=== PATIENT | female | born 2005 | race Caucasian/White ===

== ENCOUNTER 2025-01-26 20:44 | Observation (INO) ==
--- NOTE | 2025-01-26 21:06 | Emergency Department Note ---
Impression & Plan Abdominal pain ED Provider Note CHIEF COMPLAINT: Lower abdominal and pelvic pain HISTORY OF PRESENTING ILLNESS: Patient is a 19-year-old female presents to the emergency department today for evaluation of lower abdominal and pelvic pain that started last night around midnight. She reports that it radiates to her mid lower lumbar region. She rates the pain as a 5 out of 10 and describes it as a stabbing burning and cramping. She has been seen at [facility] twice now within the last month for the same complaint she states that the pain was much worse at that time. Her last bowel movement was yesterday. She did stop using control about 3 months ago and states that she has had irregular periods since. Her last menstrual cycle was January 10 to . She denies the chance of . She denies chest pain, sob, breathing difficulties, nausea, vomiting, headache, fevers/chills, blood in stool or urine, any recent illness, or any recent travel. REVIEW OF SYSTEMS: See HPI for pertinent positives and pertinent negatives. ALLERGIES: Amoxicillin, clindamycin, penicillins, sulfa, Bactrim MEDICATIONS: Zyrtec, Singulair PAST MEDICAL HISTORY: Seasonal allergies PHYSICAL EXAM: VITALS: Vitals are noted on the nurse's note and reviewed by myself. GENERAL: Non toxic, in no acute distress, non-diaphoretic. SKIN: Capillary refill <2 sec. EYES: PERRLA. EOMI. Conjunctivae without injection, sclerae without icterus. NOSE: Patent without discharge. MOUTH: Mucous membranes moist. Uvula midline. Airway patent. NECK: Supple without nuchal rigidity. HEART: Regular rate and rhythm without murmurs gallops or rubs. LUNGS: Clear to auscultation bilaterally without wheezes, rales or rhonchi. No retractions or accessory muscle use. ABDOMEN: Positive bowel sounds x 4. Normal tympanic percussion. Soft, nontender to palpation. No masses or hepatosplenomegaly. Figueroa sign negative. No CVA tenderness. No guarding, rigidity, or rebound tenderness. Mid lower abdominal/pelvic pain. MUSCULOSKELETAL: No gross musculoskeletal defects. NEURO: Patient was alert and oriented. No focal neurological deficits. DIFFERENTIAL DIAGNOSIS: Differential diagnosis includes appendicitis, diverticulitis, bowel obstruction, inflammatory bowel disease, renal colic, PUD, biliary pathology, pancreatitis, mesenteric ischemia, aortic pathology, infection, genitourinary, UTI, perforated viscus, among others. ED COURSE: HISTORY FROM INDEPENDENT HISTORIAN: Patient and her friend at bedside MEDICATIONS GIVEN: Tylenol 1 g IV the patient had improvement with pain. INTERPRETATION OF LABS: I interpreted the labs with full lab results as below in the lab section of this note. Laboratory results pertinent to the emergent complaint are discussed in the MDM section below. The patient was advised to follow up with their PCP and/or specialist(s) for further outpatient monitoring and management of any abnormal results. There was no leukocytosis, anemia, thrombocytopenia. The urinalysis was negative for bacteria, leukocytes, nitrates. Urine was also negative. INTERPRETATION OF IMAGING: Imaging studies were interpreted by myself and read by radiology as per the imaging section of this note. The patient was advised to follow up with their PCP and/or specialist(s) for further outpatient management of any non-emergent abnormal findings. The CT scan showed an 8 mm tubular structure that appears to extend from the cecum and is blind ended. There is a small amount of surrounding inflammatory stranding, questioning acute appendicitis. Significant stool throughout the colon is concerning for constipation. Ultrasound was normal for the uterus, adnexa, and bladder. Minimal pelvic free fluid in the cul-de-sac. Pelvic venous congestion. EXTERNAL RECORDS REVIEWED: I reviewed the patient's express care visit notes. CONSULTATIONS: I had a meaningful discussion about this patient with Dr. Marvin who agrees with my assessment and the treatment plan. ESCALATION OF CARE: I considered admission for this patient due to the CT findings. I consulted with Gene Rogers PA-C with surgery for admission. Will get a pelvic ultrasound, as the patient does not present as appendicitis and with a normal WBC count. I also spoke with Dr. Miranda who will wait and see what the ultrasound shows and consider having surgery admit the patient. Pelvic ultrasound was normal for the uterus, adnexa, and bladder. Minimal pelvic free fluid in the cul-de-sac. Pelvic venous congestion. I spoke with SETH Mills who will admit the patient to observation. MDM SUMMARY: I examined the patient for complaints of mid lower abdominal/pelvic pain. The CT scan showed an 8 mm tubular structure that appears to extend from the cecum and is blind ended. There is a small amount of surrounding inflammatory stranding, questioning acute appendicitis. Significant stool throughout the colon is concerning for constipation. The patient was given Tylenol 1 g IV and had improvement with pain. Patient admitted to observation by DEDRA Mills. DIAGNOSIS: Abdominal pain, possible appendicitis TREATMENT PLAN/DISCHARGE INSTRUCTIONS: Admit to observation Past Med/Surg History Problem List (Updated 01/27/25 @ 04:05 by SAHIL Breen) Abdominal pain (Acute) Social History (Updated 01/01/25 @ 15:53 by Kia Conrad, PCT) Smoking Status: Never smoker Preferred Language: Nigerien Feels Safe at Home: Yes Allergies Allergies Allergy/AdvReac Type Severity Reaction Status Date / Time amoxicillin Allergy Intermediate Unverified 01/01/25 15:51 clindamycin Allergy Intermediate Unverified 01/01/25 15:51 Penicillins Allergy Intermediate Unverified 01/01/25 15:51 sulfamethoxazole Allergy Intermediate Unverified 01/01/25 15:51 [From Bactrim] trimethoprim [From Bactrim] Allergy Intermediate Unverified 01/01/25 15:51 Home Meds Home Medications Medication Instructions Recorded Confirmed cetirizine 10 mg tablet (Zyrtec) 10 mg PO DAILY PRN Allergy Symptoms 11/13/24 01/26/25 fluticasone propionate 50 1 spray intranasal DAILY 11/13/24 01/26/25 mcg/actuation nasal spray,suspension (Flonase Allergy Relief) montelukast 10 mg tablet 10 mg PO DAILY 11/13/24 01/26/25 (Singulair) Results & Data (ED) Vital Signs Vital Signs - 24 hr 01/26/25 20:47 01/26/25 21:03 01/26/25 21:03 Temperature 36.8 C Temperature Source Temporal Artery Scan Pulse Rate 112 H Pulse Rate [Apical] 91 H Pulse Rhythm [Apical] Pulse Strength [Apical] Respiratory Rate 17 18 Respiratory Effort / Characteristics Non-Labored Spontaneous Respiratory Depth Normal Respiratory Pattern Regular Blood Pressure 108/74 Blood Pressure [Left Arm] 107/80 Blood Pressure Mean 85 Blood Pressure Mean [Left Arm] 89 Blood Pressure Position [Left Arm] Pulse Oximetry 95 97 Oxygen Delivery Method Room Air Room Air Sepsis Recent Fever Within 48 Hours No Sepsis New/Unexplained Change in Mental Status No Sepsis Action Taken by Nursing No Action Required 01/26/25 21:10 01/26/25 23:04 01/27/25 01:00 Temperature Temperature Source Pulse Rate 92 H Pulse Rate [Apical] 61 72 Pulse Rhythm [Apical] Pulse Strength [Apical] Normal Normal Respiratory Rate 18 19 Respiratory Effort / Characteristics Non-Labored Spontaneous Non-Labored Spontaneous Respiratory Depth Normal Normal Respiratory Pattern Regular Blood Pressure Blood Pressure [Left Arm] 97/66 L 112/81 Blood Pressure Mean Blood Pressure Mean [Left Arm] 76 91 Blood Pressure Position [Left Arm] Pulse Oximetry 96 99 Oxygen Delivery Method Room Air Room Air Sepsis Recent Fever Within 48 Hours Sepsis New/Unexplained Change in Mental Status Sepsis Action Taken by Nursing 01/27/25 01:06 01/27/25 02:01 01/27/25 03:00 Temperature 36.6 C Temperature Source Oral Pulse Rate 65 Pulse Rate [Apical] 61 66 Pulse Rhythm [Apical] Regular Pulse Strength [Apical] Normal Normal Respiratory Rate 18 18 Respiratory Effort / Characteristics Non-Labored Spontaneous Non-Labored Spontaneous Respiratory Depth Normal Normal Respiratory Pattern Regular Regular Blood Pressure Blood Pressure [Left Arm] 105/70 95/67 L Blood Pressure Mean Blood Pressure Mean [Left Arm] 81 76 Blood Pressure Position [Left Arm] Lying Pulse Oximetry 98 97 Oxygen Delivery Method Room Air Room Air Sepsis Recent Fever Within 48 Hours Sepsis New/Unexplained Change in Mental Status Sepsis Action Taken by Nursing 01/27/25 03:01 01/27/25 03:50 Temperature 36.7 C Temperature Source Oral Pulse Rate 63 Pulse Rate [Apical] 67 Pulse Rhythm [Apical] Pulse Strength [Apical] Normal Respiratory Rate 18 15 Respiratory Effort / Characteristics Respiratory Depth Respiratory Pattern Blood Pressure 91/66 L Blood Pressure [Left Arm] 95/67 L Blood Pressure Mean Blood Pressure Mean [Left Arm] 76 Blood Pressure Position [Left Arm] Pulse Oximetry 98 96 Oxygen Delivery Method Room Air Sepsis Recent Fever Within 48 Hours Sepsis New/Unexplained Change in Mental Status Sepsis Action Taken by Nursing Laboratory Data 01/26/25 21:10 01/26/25 21:10 Lab Results 01/26/25 Range/Units 21:10 WBC 6.17 (4.8-10.8) K/ul RBC 4.40 (4.20-5.40) M/uL Hgb 13.3 (12.0-16.0) g/dl Hct 38.6 (37.0-47.0) % MCV 87.7 (80.0-100.0) fL MCH 30.2 (25.0-34.0) pg MCHC 34.5 (32.0-36.0) g/dL RDW Std Deviation 37.0 (36.4-46.3) fL RDW Coeff of Michelle 11.5 (11.5-14.5) % Plt Count 206 (130-400) K/uL MPV 10.2 (9.4-12.4) fL Immature Gran % (Auto) 0.2 % Neut % (Auto) 41.3 % Lymph % (Auto) 46.4 % Gem % (Auto) 6.0 % Eos % (Auto) 5.3 % Baso % (Auto) 0.8 % Neut # (Auto) 2.55 (1.40-6.50) K/uL Lymph # (Auto) 2.86 (1.20-3.40) K/uL Gem # (Auto) 0.37 (0.11-0.59) K/uL Eos # (Auto) 0.33 (0.00-0.50) K/uL Baso # (Auto) 0.05 (0.00-0.20) K/uL Immature Gran # (Auto) 0.01 (0.01-0.20) K/uL Sodium 141 (136-145) mmol/L Potassium 3.6 (3.5-5.1) mmol/L Chloride 106 (98-107) mmol/L Carbon Dioxide 31 (21-32) mmol/L Anion Gap 4 (3-11) BUN 9 (6-23) mg/dl Creatinine 0.78 (0.6-1.2) mg/dl Est Cr Clr Drug Dosing 89.0 ml/min eGFR 110.75 BUN/Creatinine Ratio 11.5 (10-20) Glucose 84 (70-99(Fasting)) mg/dl Calcium 9.3 (8.6-10.3) mg/dl Total Bilirubin 0.4 (0.2-1.0) mg/dl AST 16 (13-39) U/L ALT 8 (7-52) U/L Alkaline Phosphatase 59 (34-104) U/L Troponin I High Sens < 2.3 (0-14) pg/ml Total Protein 7.9 (6.0-8.3) gm/dl Albumin 4.7 (3.4-5.0) gm/dl Globulin 3.2 (2.5-4.0) gm/dl Albumin/Globulin Ratio 1.5 (0.9-2) Lipase 29 (11-82) U/L Urine Color Yellow Urine Appearance Clear (Clear) Urine pH 7.5 (4.5-7.5) Ur Specific [place] 1.010 (1.000-1.030) Urine Protein Negative (Negative) Urine Glucose (UA) Negative (Negative) Urine Ketones Negative (Negative) Urine Blood Negative (Negative) Urine Nitrite Negative (Negative) Urine Bilirubin Negative (Negative) Urine Urobilinogen Negative (Negative) Ur Leukocyte Esterase Negative (Negative) POC Ur Test NEG (NEG) Administered Medications Lactated Ringer's (Lr) 1,000 mls @ 80 mls/hr IV .[id number] ROME Stop: 01/28/25 02:59 Last Admin: 01/27/25 03:06 Dose: 80 mls/hr Documented By: TJS Discontinued Medications Acetaminophen (Ofirmev) 1,000 mg in 100 mls @ 400 mls/hr IV NOW STA Stop: 01/26/25 21:25 Last Infusion: 01/26/25 22:06 Dose: Infused Documented By: Admin: 01/26/25 21:51 Dose: 400 mls/hr Documented By: LCD Imaging Data Radiologist's Impression: Abdomen/Pelvis CT 01/26/25 21:03 CR Exam(s): CT ABDOMEN + PELVIS Without Contrast EXAM: CT Abdomen and Pelvis Without Intravenous Contrast CLINICAL HISTORY: Abdominal Pain. TECHNIQUE: Axial computed tomography images of the abdomen and pelvis without intravenous contrast. CTDI is 7 mGy and DLP is 364 mGy-cm. Automated exposure control was utilized for the study. A dose lowering technique was utilized adhering to the principles of ALARA. COMPARISON: Renal ultrasound 06/25/2024 FINDINGS: Lung bases: Unremarkable. No mass. No consolidation. ABDOMEN: Liver: Unremarkable. Gallbladder and bile ducts: Unremarkable. No calcified stones. No ductal dilation. Pancreas: Unremarkable. No ductal dilation. Spleen: Unremarkable. No splenomegaly. Adrenals: Unremarkable. No mass. Kidneys and ureters: Unremarkable. Nonobstructing stones. No hydronephrosis. Stomach and bowel: No obstruction. No mucosal thickening. PELVIS: Appendix: There is an 8 mm tubular structure that appears to extend from the cecum and is blind ended. There is a small amount of surrounding inflammatory stranding. Significant stool throughout the colon is concerning for constipation. Axial images 59 through 70. Bladder: Unremarkable. No stones. Reproductive: Unremarkable as visualized. ABDOMEN and PELVIS: Intraperitoneal space: Unremarkable. No free air. No significant fluid collection. Bones/joints: No acute fracture. No dislocation. Soft tissues: Unremarkable. Vasculature: Unremarkable. No abdominal aortic aneurysm. Lymph nodes: Unremarkable. No enlarged lymph nodes. IMPRESSION: 1. There is an 8 mm tubular structure that appears to extend from the cecum and is blind ended. There is a small amount of surrounding inflammatory stranding. Question acute appendicitis. No abscess or perforation. 2. Significant stool throughout the colon is concerning for constipation. Communications: Call Doctor Appendicitis Electronically signed by: Aleena Stallings MD 01/27/25 00:02 AM Pelvis Ultrasound 01/27/25 01:04 EXAM: US pelvic complete CLINICAL HISTORY: Abdominal pain. TECHNIQUE: Ultrasound examination of the pelvis was performed in real time and duplex using trans-abdominal and trans-vaginal approaches. The vascular flow was evaluated using color flow and with a spectral pattern of the flow waveform. COMPARISON: None. FINDINGS: Uterus: Uterine size and morphology: 6.3 x 4.4 x 3.3cm. The uterus appears retroverted with homogeneous myometrium. No evidence of uterine masses, fibroids, or endometrial thickening. Endometrial stripe thickness: [6 mm]. Ovaries: Right ovary size: 2.6 x 2.3 x 1.5cm. Left ovary size: 3.4 x 2 x 1.4cm. Ovaries are normal in size with preserved follicular development and blood flow. No ovarian cysts or solid masses were identified. Adnexa: Normal appearance without evidence of masses. Urinary bladder: No evidence of bladder wall thickening, masses, or intraluminal stones. Additional Findings: Minimal pelvic free fluid in the cul-de-sac. Pelvic venous congestion noted. IMPRESSION: 1. Normal findings in the uterus, ovaries, adnexa, and bladder. 2. Minimal pelvic free fluid in the cul-de-sac, possibly physiological; clinical correlation would be recommended. 3. Pelvic venous congestion. RECOMMENDATIONS:Clinical correlation with symptoms and further evaluation as indicated. Electronically signed by Zach Boothe 01-27-2025 02:50 AM Discharge Plan Visit Data Chief Complaint: Abdominal Pain Stated Complaint: ABDOMINAL PAIN, CRAMPING ED Provider: Anais Marvin ED Midlevel Provider: Tracey Lira Discharge Problem: Abdominal pain Patient Disposition: Home - Self-Care Condition: Good Discharge Instructions Interventions: ED Discharge Assessment Last Done: 01/27/25 03:50 Forms Stand Alone Forms: My [facility], Important Visit Information Prescriptions Prescriptions: No Action montelukast [Singulair] 10 mg tablet 10 mg PO DAILY cetirizine [Zyrtec] 10 mg tablet 10 mg PO DAILY PRN (Reason: Allergy Symptoms) fluticasone propionate [Flonase Allergy Relief] 50 mcg/actuation spray,suspension 1 spray intranasal DAILY Rx Instructions: administer into each nostril Referrals Referrals: PCP,NO [Primary Care Provider] -
[2025-01-26 21:32] LABS: Appearance Urine Clear (Clear); Bilirubin Urine Negative (Negative); Blood Urine Negative (Negative); Color Urine Yellow; Glucose Urine UA Negative (Negative); Ketones Urine Negative (Negative); Leukocyte Esterase Urine Negative (Negative); Nitrite Urine Negative (Negative); Protein Urine Negative (Negative); Urobilinogen Urine Negative (Negative); pH Urine 7.5 (4.5-7.5)
[2025-01-26 21:47] LABS: Basophils # (auto) 0.05 K/uL (0.00-0.20); Basophils % (auto) 0.8 %; Eosinophils # (auto) 0.33 K/uL (0.00-0.50); Eosinophils % (auto) 5.3 %; Hematocrit (blood only) 38.6 % (37.0-47.0); Hemoglobin 13.3 g/dl (12.0-16.0); Immature Granulocytes # (auto) 0.01 K/uL (0.01-0.20); Immature Granulocytes % (auto) 0.2 %; Lymphocytes # (auto) 2.86 K/uL (1.20-3.40); Lymphocytes % (auto) 46.4 %; Mean Corpuscular Hemoglobin 30.2 pg (25.0-34.0); Mean Corpuscular Hgb Conc 34.5 g/dL (32.0-36.0); Mean Corpuscular Volume 87.7 fL (80.0-100.0); Mean Platelet Volume 10.2 fL (9.4-12.4); Monocytes # (auto) 0.37 K/uL (0.11-0.59); Neutrophils # (auto) 2.55 K/uL (1.40-6.50); Neutrophils % (auto) 41.3 %; Platelet Count 206 K/uL (130-400); RDW Coefficient of Variation 11.5 % (11.5-14.5); White Blood Count 6.17 K/ul (4.8-10.8)
[2025-01-26] MEDS: ACETAMINOPHEN 1,000 MG/100 ML VIAL IV STA (21:51)
[2025-01-26 22:02] LABS: Alanine Aminotransferase 8 U/L (7-52); Albumin Globulin Ratio 1.5 (0.9-2); Albumin Level 4.7 gm/dl (3.4-5.0); Alkaline Phosphatase 59 U/L (34-104); Anion Gap 4 (3-11); Aspartate Aminotransferase 16 U/L (13-39); BUN Creatinine Ratio 11.5 (10-20); Bilirubin,Total 0.4 mg/dl (0.2-1.0); Blood Urea Nitrogen 9 mg/dl (6-23); Calcium 9.3 mg/dl (8.6-10.3); Carbon Dioxide 31 mmol/L (21-32); Chloride 106 mmol/L (98-107); Globulin 3.2 gm/dl (2.5-4.0); Glucose 84 mg/dl (70-99(Fasting)); Lipase 29 U/L (11-82); Potassium 3.6 mmol/L (3.5-5.1); Sodium 141 mmol/L (136-145); Total Protein 7.9 gm/dl (6.0-8.3)
[2025-01-26 22:09] LABS: Troponin I High Sensitivity < 2.3 pg/ml (0-14)
--- NOTE | 2025-01-27 00:03 | CT Scan Report ---
Exam(s): CT ABDOMEN + PELVIS Without Contrast EXAM: CT Abdomen and Pelvis Without Intravenous Contrast CLINICAL HISTORY: Abdominal Pain. TECHNIQUE: Axial computed tomography images of the abdomen and pelvis without intravenous contrast. CTDI is 7 mGy and DLP is 364 mGy-cm. Automated exposure control was utilized for the study. A dose lowering technique was utilized adhering to the principles of ALARA. COMPARISON: Renal ultrasound 06/25/2024 FINDINGS: Lung bases: Unremarkable. No mass. No consolidation. ABDOMEN: Liver: Unremarkable. Gallbladder and bile ducts: Unremarkable. No calcified stones. No ductal dilation. Pancreas: Unremarkable. No ductal dilation. Spleen: Unremarkable. No splenomegaly. Adrenals: Unremarkable. No mass. Kidneys and ureters: Unremarkable. Nonobstructing stones. No hydronephrosis. Stomach and bowel: No obstruction. No mucosal thickening. PELVIS: Appendix: There is an 8 mm tubular structure that appears to extend from the cecum and is blind ended. There is a small amount of surrounding inflammatory stranding. Significant stool throughout the colon is concerning for constipation. Axial images 59 through 70. Bladder: Unremarkable. No stones. Reproductive: Unremarkable as visualized. ABDOMEN and PELVIS: Intraperitoneal space: Unremarkable. No free air. No significant fluid collection. Bones/joints: No acute fracture. No dislocation. Soft tissues: Unremarkable. Vasculature: Unremarkable. No abdominal aortic aneurysm. Lymph nodes: Unremarkable. No enlarged lymph nodes. IMPRESSION: 1. There is an 8 mm tubular structure that appears to extend from the cecum and is blind ended. There is a small amount of surrounding inflammatory stranding. Question acute appendicitis. No abscess or perforation. 2. Significant stool throughout the colon is concerning for constipation. Communications: Call Doctor Appendicitis Electronically signed by: Aleena Stallings MD 01/27/25 00:02 AM
--- NOTE | 2025-01-27 01:25 | Surgery Consultation ---
Date of Consultation January 27, 2025 Assessment & Plan (1) Abdominal pain: Patient is a 19-year-old female with complaints of lower abdominal pain that started last evening and intermittently throughout the month. The patient was worked up in the emergency room and labs were all WNL however CT imaging did show 8mm appendix with small amount of surrounding inflammatory stranding. On exam the patient does have some slight TTP in the RLQ however it is unclear if her symptoms are from acute appendicitis at this time. The patient History of Present Illness Reason for Consultation: abdominal pain History of Present Illness Patient is an otherwise healthy 19-year-old female who presented to the emergency department for complaints of lower abdominal pain. The patient states the pain started a day prior and the pain has started to radiate into her lower back at times. The patient denies any associated nausea or vomiting with the onset of her pain. She does state that she recently has stopped control and she has had irregular periods since. Her last menstrual cycle ended last week. She has seen a [facility] in the past, however since being in college she hasn't seen one recently. She does believe once prior she had an ovarian cyst however was never confirmed with imaging. The patient states that she has had intermittent abdominal pain for the past month and she was seen at [facility] for the same complaints. She denies chest pain, sob, or fevers/chills. She denies any changes in urinary or bowel habits. Her last BM was a few days ago however states that's normal for her and she goes 3 or so days between having bowel movements. She also complains of constipation at times. The patient was worked up in the emergency department and labs WNL and imaging with 8mm appendix with some slight inflammatory stranding. Due to these findings , the patient was seen and evaluated by general surgery team. The patient is nontoxic appearing, VSS, and resting comfortably. The patient on exam does have some TTP in the RLQ however no rebound or guarding appreciated. The patient denies any previous abdominal surgeries. Allergies Allergy/AdvReac Type Severity Reaction Status Date / Time amoxicillin Allergy Intermediate Unverified 01/01/25 15:51 clindamycin Allergy Intermediate Unverified 01/01/25 15:51 Penicillins Allergy Intermediate Unverified 01/01/25 15:51 sulfamethoxazole Allergy Intermediate Unverified 01/01/25 15:51 [From Bactrim] trimethoprim [From Bactrim] Allergy Intermediate Unverified 01/01/25 15:51 Home Medications Medication Instructions Recorded Confirmed Type cetirizine 10 mg tablet (Zyrtec) 10 mg PO DAILY PRN Allergy Symptoms 11/13/24 01/26/25 History fluticasone propionate 50 1 spray intranasal DAILY 11/13/24 01/26/25 History mcg/actuation nasal spray,suspension (Flonase Allergy Relief) montelukast 10 mg tablet 10 mg PO DAILY 11/13/24 01/26/25 History (Singulair) Patient History Social History (Updated 01/01/25 @ 15:53 by Kia Conrad, PCT) Smoking Status: Never smoker Preferred Language: Solomon Islander Feels Safe at Home: Yes Review of Systems Constitutional: no fever, no chills, no body aches and no weakness Respiratory: no cough, no chest congestion and no dyspnea Cardiovascular: no chest pain, no palpitations and no syncope Gastrointestinal: + abdominal pain and + constipation; no nausea and no vomiting Physical Exam Constitutional: WD/WN, vitals as above Respiratory: normal respiratory effort, lungs clear to auscultation Cardiovascular: RRR, no murmur, no edema Gastrointestinal (Abdomen): Abdomen soft, nondistended, mild TTP in the RLQ without rebound or guarding Skin: no rashes, warm and dry Results & Data Vital Signs (Past 12 Hours) Vital Signs Temp Pulse Pulse Resp BP BP Pulse Ox 01/27/25 01:06 65 01/27/25 01:00 72 19 112/81 99 01/26/25 23:04 61 18 97/66 L 96 01/26/25 21:10 92 H 01/26/25 21:03 01/26/25 21:03 91 H 18 107/80 97 01/26/25 20:47 36.8 C 112 H 17 108/74 95 O2 Del Method 01/27/25 01:06 01/27/25 01:00 Room Air 01/26/25 23:04 Room Air 01/26/25 21:10 01/26/25 21:03 Room Air 01/26/25 21:03 01/26/25 20:47 Room Air Diagnostic Findings Exam(s): CT ABDOMEN + PELVIS Without Contrast EXAM: CT Abdomen and Pelvis Without Intravenous Contrast CLINICAL HISTORY: Abdominal Pain. TECHNIQUE: Axial computed tomography images of the abdomen and pelvis without intravenous contrast. CTDI is 7 mGy and DLP is 364 mGy-cm. Automated exposure control was utilized for the study. A dose lowering technique was utilized adhering to the principles of ALARA. COMPARISON: Renal ultrasound 06/25/2024 FINDINGS: Lung bases: Unremarkable. No mass. No consolidation. ABDOMEN: Liver: Unremarkable. Gallbladder and bile ducts: Unremarkable. No calcified stones. No ductal dilation. Pancreas: Unremarkable. No ductal dilation. Spleen: Unremarkable. No splenomegaly. Adrenals: Unremarkable. No mass. Kidneys and ureters: Unremarkable. Nonobstructing stones. No hydronephrosis. Stomach and bowel: No obstruction. No mucosal thickening. PELVIS: Appendix: There is an 8 mm tubular structure that appears to extend from the cecum and is blind ended. There is a small amount of surrounding inflammatory stranding. Significant stool throughout the colon is concerning for constipation. Axial images 59 through 70. Bladder: Unremarkable. No stones. Reproductive: Unremarkable as visualized. ABDOMEN and PELVIS: Intraperitoneal space: Unremarkable. No free air. No significant fluid collection. Bones/joints: No acute fracture. No dislocation. Soft tissues: Unremarkable. Vasculature: Unremarkable. No abdominal aortic aneurysm. Lymph nodes: Unremarkable. No enlarged lymph nodes. IMPRESSION: 1. There is an 8 mm tubular structure that appears to extend from the cecum and is blind ended. There is a small amount of surrounding inflammatory stranding. Question acute appendicitis. No abscess or perforation. 2. Significant stool throughout the colon is concerning for constipation. PG Care Time/CCT Total # of Minutes Spent Total Time Spent with Patient: Total time spent is greater than 50% in coordination of care (as documented) at patient's floor/unit and/or counseling patient: Coding Diagnoses Abdominal pain R10.9
--- NOTE | 2025-01-27 02:51 | Ultrasound Report ---
EXAM: US pelvic complete CLINICAL HISTORY: Abdominal pain. TECHNIQUE: Ultrasound examination of the pelvis was performed in real time and duplex using trans-abdominal and trans-vaginal approaches. The vascular flow was evaluated using color flow and with a spectral pattern of the flow waveform. COMPARISON: None. FINDINGS: Uterus: Uterine size and morphology: 6.3 x 4.4 x 3.3cm. The uterus appears retroverted with homogeneous myometrium. No evidence of uterine masses, fibroids, or endometrial thickening. Endometrial stripe thickness: [6 mm]. Ovaries: Right ovary size: 2.6 x 2.3 x 1.5cm. Left ovary size: 3.4 x 2 x 1.4cm. Ovaries are normal in size with preserved follicular development and blood flow. No ovarian cysts or solid masses were identified. Adnexa: Normal appearance without evidence of masses. Urinary bladder: No evidence of bladder wall thickening, masses, or intraluminal stones. Additional Findings: Minimal pelvic free fluid in the cul-de-sac. Pelvic venous congestion noted. IMPRESSION: 1. Normal findings in the uterus, ovaries, adnexa, and bladder. 2. Minimal pelvic free fluid in the cul-de-sac, possibly physiological; clinical correlation would be recommended. 3. Pelvic venous congestion. RECOMMENDATIONS:Clinical correlation with symptoms and further evaluation as indicated. Electronically signed by Zach Boothe 01-27-2025 02:50 AM
[2025-01-27] MEDS: LACTATED RINGER'S 1,000 ML IV SCH (03:06)
--- NOTE | 2025-01-27 03:07 | History & Physical Report ---
Date of Service January 27, 2025 Assessment & Plan (1) Abdominal pain: Plan: Patient with acute onset of lower abdominal pain that started about a day ago and intermittently has had similar abdominal complaints over the last few weeks. The patient was worked up in the emergency department and all labs were WNL and VSS. Her CT A/P does show an 8mm appendix with some surrounding inflammatory stranding with concern of acute appendicitis along with constipation. The pat ient on exam does elicit some mild TTP in the RLQ otherwise she denies any other associated symptoms. At this time it is unclear if etiology of abdominal pain is from appendicitis. I discussed with the patient about potential discharge with strict return precautions however she states she would feel more comfortable being admitted for observation for her abdominal pain. Patient can be admitted under observation to the surgical service, we will keep her NPO for now, IV hydration and pain control. No indication for antibiotics at this time and will repeat lab work this morning to evaluate WBC. We did discuss the possibility about undergoing surgical intervention if her symptoms continue and she ultimately does agree to surgery if indicated. I also did discuss with her about starting a bowel regime with stool softeners/fiber. Will discuss patient's case with attending surgeon, Dr. Clifton, and final surgical recommendations and plan to follow History of Present Illness Primary Care Provider: NO PCP Patient is an otherwise healthy 19-year-old female who presented to the emergency department for complaints of lower abdominal pain. The patient states the pain started a day prior and the pain has started to radiate into her lower back at times. The patient denies any associated nausea or vomiting with the onset of her pain. She does state that she recently has stopped control and she has had irregular periods since. Her last menstrual cycle ended last week. She has seen a [employer]OR [employer] in the past, however since being in college she hasn't seen one recently. She does believe once prior she had an ovarian cyst however was never confirmed with imaging. The patient states that she has had intermittent abdominal pain for the past month and she was seen at [facility] for the same complaints. She denies chest pain, sob, or fevers/chills. She denies any changes in urinary or bowel habits. Her last BM was a few days ago however states that's normal for her and she goes 3 or so days between having bowel movements. She also complains of constipation at times. The patient was worked up in the emergency department and labs WNL and imaging with 8mm appendix with some slight inflammatory stranding. Due to these findings , the patient was seen and evaluated by general surgery team. The patient is nontoxic appearing, VSS, and resting comfortably. The patient on exam does have some TTP in the RLQ however no rebound or guarding appreciated. The patient denies any previous abdominal surgeries. Allergies Allergy/AdvReac Type Severity Reaction Status Date / Time amoxicillin Allergy Intermediate Unverified 01/01/25 15:51 clindamycin Allergy Intermediate Unverified 01/01/25 15:51 Penicillins Allergy Intermediate Unverified 01/01/25 15:51 sulfamethoxazole Allergy Intermediate Unverified 01/01/25 15:51 [From Bactrim] trimethoprim [From Bactrim] Allergy Intermediate Unverified 01/01/25 15:51 Home Medications Medication Instructions Recorded Confirmed Type cetirizine 10 mg tablet (Zyrtec) 10 mg PO DAILY PRN Allergy Symptoms 11/13/24 01/26/25 History fluticasone propionate 50 1 spray intranasal DAILY 11/13/24 01/26/25 History mcg/actuation nasal spray,suspension (Flonase Allergy Relief) montelukast 10 mg tablet 10 mg PO DAILY 11/13/24 01/26/25 History (Singulair) Past Med/Surg History Problem List (Updated 01/27/25 @ 07:41 by Isauro Muñoz, ) Encounter for pre-operative examination Abdominal pain (Acute) Social History (Updated 01/01/25 @ 15:53 by Kia Conrad, [place]) Smoking Status: Never smoker Hx Alcohol Use: Yes Hx Substance Use: No Preferred Language: Citizen Of [place] Communication Ability: Effective 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 Beliefs That Will Affect Care: None Current Living Situation Comment: apartment Other Information That Helps Us Care for You: No Feels Safe at Home: Yes Safety Concerns: Feels Safe At This Time Assistive Devices: None Review of Systems Constitutional: no fever, no chills and no body aches Respiratory: no cough, no chest congestion and no dyspnea Cardiovascular: no chest pain, no palpitations and no syncope Gastrointestinal: + abdominal pain; no nausea and no vomit ing Physical Exam Constitutional: WD/WN, vitals as above Respiratory: normal respiratory effort, lungs clear to auscultation Cardiovascular: RRR, no murmur, no edema Gastrointestinal (Abdomen): Abdomen soft, nondistended, mild TTP in the RLQ without rebound or guarding Skin: no rashes, warm and dry Results & Data Results & Data Vital Signs (Past 12 Hours) Vital Signs Temp Pulse Pulse Resp BP BP Pulse Ox 01/27/25 02:01 36.6 C 61 18 105/70 98 01/27/25 01:06 65 01/27/25 01:00 72 19 112/81 99 01/26/25 23:04 61 18 97/66 L 96 01/26/25 21:10 92 H 01/26/25 21:03 01/26/25 21:03 91 H 18 107/80 97 01/26/25 20:47 36.8 C 112 H 17 108/74 95 O2 Del Method 01/27/25 02:01 Room Air 01/27/25 01:06 01/27/25 01:00 Room Air 01/26/25 23:04 Room Air 01/26/25 21:10 01/26/25 21:03 Room Air 01/26/25 21:03 01/26/25 20:47 Room Air Diagnostic Findings Exam(s): CT ABDOMEN + PELVIS Without Contrast EXAM: CT Abdomen and Pelvis Without Intravenous Contrast CLINICAL HISTORY: Abdominal Pain. TECHNIQUE: Axial computed tomography images of the abdomen and pelvis without intravenous contrast. CTDI is 7 mGy and DLP is 364 mGy-cm. Automated exposure control was utilized for the study. A dose lowering technique was utilized adhering to the principles of ALARA. COMPARISON: Renal ultrasound 06/25/2024 FINDINGS: Lung bases: Unremarkable. No mass. No consolidation. ABDOMEN: Liver: Unremarkable. Gallbladder and bile ducts: Unremarkable. No calcified stones. No ductal dilation. Pancreas: Unremarkable. No ductal dilation. Spleen: Unremarkable. No splenomegaly. Adrenals: Unremarkable. No mass. Kidneys and ureters: Unremarkable. Nonobstructing stones. No hydronephrosis. Stomach and bowel: No obstruction. No mucosal thickening. PELVIS: Appendix: There is an 8 mm tubular structure that appears to extend from the cecum and is blind ended. There is a small amount of surrounding inflammatory stranding. Significant stool throughout the colon is concerning for constipation. Axial images 59 through 70. Bladder: Unremarkable. No stones. Reproductive: Unremarkable as visualized. ABDOMEN and PELVIS: Intraperitoneal space: Unremarkable. No free air. No significant fluid collection. Bones/joints: No acute fracture. No dislocation. Soft tissues: Unremarkable. Vasculature: Unremarkable. No abdominal aortic aneurysm. Lymph nodes: Unremarkable. No enlarged lymph nodes. IMPRESSION: 1. There is an 8 mm tubular structure that appears to extend from the cecum and is blind ended. There is a small amount of surrounding inflammatory stranding. Question acute appendicitis. No abscess or perforation. 2. Significant stool throughout the colon is concerning for constipation. EXAM: US pelvic complete CLINICAL HISTORY: Abdominal pain. TECHNIQUE: Ultrasound examination of the pelvis was performed in real time and duplex using trans-abdominal and trans-vaginal approaches. The vascular flow was evaluated using color flow and with a spectral pattern of the flow waveform. COMPARISON: None. FINDINGS: Uterus: Uterine size and morphology: 6.3 x 4.4 x 3.3cm. The uterus appears retroverted with homogeneous myometrium. No evidence of uterine masses, fibroids, or endometrial thickening. Endometrial stripe thickness: [6 mm]. Ovaries: Right ovary size: 2.6 x 2.3 x 1.5cm. Left ovary size: 3.4 x 2 x 1.4cm. Ovaries are normal in size with preserved follicular development and blood flow. No ovarian cysts or solid masses were identified. Adnexa: Normal appearance without evidence of masses. Urinary bladder: No evidence of bladder wall thickening, masses, or intraluminal stones. Additional Findings: Minimal pelvic free fluid in the cul-de-sac. Pelvic venous congestion noted. IMPRESSION: 1. Normal findings in the uterus, ovaries, adnexa, and bladder. 2. Minimal pelvic free fluid in the cul-de-sac, possibly physiological; clinical correlation would be recommended. 3. Pelvic venous congestion. Code Status & VTE Plan VTE Prophylaxis Plan VTE Prophylaxis will be ordered: Yes PG Care Time/CCT Total # of Minutes Spent Total Time Spent with Patient: Total time spent is greater than 50% in coordination of care (as documented) at patient's floor/unit and/or counseling patient: [place] [address] INT INP/OBS CARE 1/40MIN Patient Type New Medical Decision Making Straight Forward Diagnoses Abdominal pain R10.9
[2025-01-27] MEDS ORDERED: ONDANSETRON INJ 2 MG/ML 2 ML VIAL IV PRN ×2 (04:16→12:40)
[2025-01-27] MEDS: ACETAMINOPHEN 1,000 MG/100 ML VIAL IV SCH (05:52)
--- NOTE | 2025-01-27 07:41 | Anesthesiology Consultation ---
Date of Service January 27, 2025 Assessment & Plan (1) Encounter for pre-operative examination: Chart Review Chart Review: Acceptable Risk for Surgery and Patient NOT seen in Pre Admission Testing Consults Requested none History Surgery Operation Date: 01/27/25 11:00 Proposed Procedures p Laparoscopic Appendectomy - Mayank Clifton DO Height/Weight Height: 5 ft 2 in Weight: 49.4 kg Allergies Allergy/AdvReac Type Severity Reaction Status Date / Time amoxicillin Allergy Intermediate Unverified 01/01/25 15:51 clindamycin Allergy Intermediate Unverified 01/01/25 15:51 Penicillins Allergy Intermediate Unverified 01/01/25 15:51 sulfamethoxazole Allergy Intermediate Unverified 01/01/25 15:51 [From Bactrim] trimethoprim [From Bactrim] Allergy Intermediate Unverified 01/01/25 15:51 Medications Home Medications Medication Instructions Recorded Confirmed Last Taken cetirizine 10 mg tablet (Zyrtec) 10 mg PO DAILY PRN Allergy Symptoms 11/13/24 01/26/25 Unknown fluticasone propionate 50 1 spray intranasal DAILY 11/13/24 01/26/25 Unknown mcg/actuation nasal spray,suspension (Flonase Allergy Relief) montelukast 10 mg tablet 10 mg PO DAILY 11/13/24 01/26/25 Unknown (Singulair) Active Medications Generic Name Dose Route Start Last Admin Trade Name Freq PRN Reason Stop Dose Admin Lactated Ringer's 1,000 mls @ 80 mls/hr 01/27/25 03:00 01/27/25 03:06 Lr IV 01/28/25 02:59 80 mls/hr .[id number] ROME Administration Acetaminophen 1,000 mg in 100 mls @ 400 mls/hr 01/27/25 06:00 01/27/25 06:08 Ofirmev IV 01/30/25 05:59 Infused Q8H ROME Infusion Social History Smoking Status: Never smoker Hx Alcohol Use: Yes Hx Substance Use: No Physical Exam Vital Signs Last Vital Signs Temp 98.2 F 01/27/25 07:37 Pulse 62 01/27/25 07:37 Resp 16 01/27/25 07:37 BP 95/61 L 01/27/25 07:37 Pulse Ox 98 01/27/25 07:37 O2 Del Method Room Air 01/27/25 07:37 Testing Laboratory Results 01/26/25 21:10 Urine Color Yellow 01/26/25 21:10 Urine Appearance Clear (Clear) 01/26/25 21:10 Urine pH 7.5 (4.5-7.5) 01/26/25 21:10 Ur Specific [place] 1.010 (1.000-1.030) 01/26/25 21:10 Urine Protein Negative (Negative) 01/26/25 21:10 Urine Glucose (UA) Negative (Negative) 01/26/25 21:10 Urine Ketones Negative (Negative) 01/26/25 21:10 Urine Nitrite Negative (Negative) 01/26/25 21:10 Ur Leukocyte Esterase Negative (Negative) 01/26/25 21:10 01/26/25 21:10 POC Ur Test NEG
[2025-01-27 07:44] LABS: Basophils # (auto) 0.03 K/uL (0.00-0.20); Basophils % (auto) 0.6 %; Eosinophils # (auto) 0.28 K/uL (0.00-0.50); Eosinophils % (auto) 5.2 %; Hematocrit (blood only) 34.8 % (37.0-47.0); Immature Granulocytes # (auto) 0.02 K/uL (0.01-0.20); Immature Granulocytes % (auto) 0.4 %; Lymphocytes # (auto) 2.18 K/uL (1.20-3.40); Lymphocytes % (auto) 40.5 %; Mean Corpuscular Hemoglobin 30.4 pg (25.0-34.0); Mean Corpuscular Hgb Conc 34.5 g/dL (32.0-36.0); Mean Corpuscular Volume 88.1 fL (80.0-100.0); Mean Platelet Volume 10.4 fL (9.4-12.4); Monocytes # (auto) 0.31 K/uL (0.11-0.59); Monocytes % (auto) 5.8 %; Neutrophils # (auto) 2.56 K/uL (1.40-6.50); Neutrophils % (auto) 47.5 %; Platelet Count 180 K/uL (130-400); RDW Coefficient of Variation 11.5 % (11.5-14.5); RDW Standard Deviation 37.1 fL (36.4-46.3); Red Blood Count 3.95 M/uL (4.20-5.40); White Blood Count 5.38 K/ul (4.8-10.8)
--- NOTE | 2025-01-27 12:14 | Surgery Progress Note ---
Date of Service January 27, 2025 Assessment & Plan (1) Appendicitis: Plan: Her CT images and results were personally viewed and interpreted by myself She does have a dilated appendix with some periappendiceal stranding and tenderness in the right lower quadrant consistent with appendicitis She did have a bowel movement and felt a little bit better but is mangle tender on exam I think the benefits of a laparoscopic appendectomy outweigh the risk of waiting and possibly perforation I had a long discussion with the patient and her parents and they agreed to proceed with surgery Will plan on a laparoscopic appendectomy, possible open Consent was obtained, risks discussed including bleeding, infection, abscess Admission and Anticipated Discharge Date Admission Date: January 27, 2025 Subjective Patient seen and examined. Still with right lower quadrant and pelvic pain. She did have a bowel movement and felt a little better. Afebrile. Review of Systems Constitutional: no fever, no chills and no body aches Respiratory: no cough, no chest congestion and no dyspnea Cardiovascular: no chest pain, no palpitations and no syncope Gastrointestinal: + abdominal pain; no nausea and no vomit ing Physical Exam Constitutional: WD/WN, vitals as above Respiratory: normal respiratory effort, lungs clear to auscultation Cardiovascular: RRR, no murmur, no edema Gastrointestinal (Abdomen): Inspection/Auscultation: abdomen normal to inspection; abdomen not distended Percussion/Palpation: + abdomen tender (Right lower quadrant), + guarding and abdomen soft; no hernia Skin: no rashes, warm and dry Neurologic: PERRL, EOMI, accommodation nl, no face palsy, no dysarthria Results & Data Vital Signs (Past 12 Hours) Vital Signs Temp Pulse Pulse Pulse Resp BP BP 01/27/25 07:37 36.8 C 62 16 95/61 L 01/27/25 04:22 36.6 C 73 16 111/74 01/27/25 03:50 36.7 C 63 15 91/66 L 01/27/25 03:01 67 18 95/67 L 01/27/25 03:00 66 18 95/67 L 01/27/25 02:01 36.6 C 61 18 105/70 01/27/25 01:06 65 01/27/25 01:00 72 19 112/81 Pulse Ox O2 Del Method 01/27/25 07:37 98 Room Air 01/27/25 04:22 98 Room Air 01/27/25 03:50 96 Room Air 01/27/25 03:01 98 01/27/25 03:00 97 Room Air 01/27/25 02:01 98 Room Air 01/27/25 01:06 01/27/25 01:00 99 Room Air PG Care Time/CCT Total # of Minutes Spent Total Time Spent with Patient: Total time spent is greater than 50% in coordination of care (as documented) at patient's floor/unit and/or counseling patient: Coding Level of Care Code 41421 SUB INP/OBS CARE 2/35MIN Diagnoses Appendicitis K37
[2025-01-27] MEDS ORDERED: fentaNYL citrate PF 100 MCG/2 ML VIAL ONE (12:25)
[2025-01-27] MEDS ORDERED: MIDAZOLAM HCL 1 MG/ML 2ML VIAL ONE (12:25)
[2025-01-27] MEDS ORDERED: ePHEDrine sulfate 50 MG/ML AMP IV PRN (12:40)
[2025-01-27] MEDS ORDERED: ATROPINE SULFATE 0.1 MG/ML 10ML SYR IV PRN (12:40)
[2025-01-27] MEDS: cefOXitin 2,000 MG in DEXTROSE 5 % MINI-B 50 ML IV SCH (12:43)
[2025-01-27] MEDS ORDERED: SUGAMMADEX SODIUM 200 MG/2 ML VIAL IV ONE (13:15)
[2025-01-27] MEDS ORDERED: PROPOFOL IV EMULSION 10 MG/ML 20 ML VIAL IV ONE (13:15)
[2025-01-27] MEDS ORDERED: LIDOCAINE 2% 2 ML VIAL/AMP(20MG/ML) INFIL ONE (13:15)
[2025-01-27] MEDS ORDERED: DEXAMETHASONE SOD INJ 4 MG/ML VIAL ONE (13:15)
[2025-01-27] MEDS ORDERED: ROCURONIUM BROMIDE 10 MG/ML 5 ML VIAL IV ONE (13:15)
[2025-01-27] MEDS ORDERED: ONDANSETRON INJ 2 MG/ML 2 ML VIAL ONE (13:15)
[2025-01-27] MEDS ORDERED: KETOROLAC 30 MG/ML VIAL ONE (13:15)
[2025-01-27] MEDS: BUPIVACAINE/EPINEPHRINE 0.25% 1:200,000 30 ML VIAL INFIL ONE (13:25)
--- NOTE | 2025-01-27 13:32 | Post Operative Brief Note ---
PG Immediate Post Op with CF Date of Surgery January 27, 2025 Pre & Post Diagnosis Operation Date: 01/27/25 11:00 Pre-Op Diagnosis: Acute Appendicitis Post-Op Diagnosis: Acute Appendicitis without perforation I identified the patient and participated in the time-out.: Yes Procedure Operation Date: 01/27/25 11:00 Actual Procedures p Laparoscopic Appendectomy(Not Applicable) - Mayank Clifton DO Surgeon Mayank Clifton DO Child Monitor None Estimated Blood Loss 5 Findings See Below Acutely inflamed dilated appendix without perforation Specimens Specimen Description: A. Appendix Anesthesia Type General Complications none Disposition Disposition: Recovery Room
--- NOTE | 2025-01-27 13:34 | Operative Report ---
PG Post Operative Report Pre & Post Diagnosis Operation Date: 01/27/25 11:00 Pre-Op Diagnosis: Acute Appendicitis Post-Op Diagnosis: Acute Appendicitis without perforation I identified the patient and participated in the time-out.: Yes Procedure Operation Date: 01/27/25 11:00 Actual Procedures p Laparoscopic Appendectomy(Not Applicable) - Mayank Clifton DO Surgeon Mayank Clifton DO Gis Consultant None Estimated Blood Loss 5 Findings See Below Acutely inflamed, dilated appendix without perforation Specimens Appendix to pathology Drains None Anesthesia Type General Complications none Disposition Disposition: Recovery Room Indications 19-year-old female with acute appendicitis Description of Procedure The patient was brought to the OR and placed in the supine position and SCD's placed. At this time she underwent general endotracheal anesthesia without incident. At this time a Black catheter was placed under sterile conditions. Her abdomen was prepped and draped in the usual sterile fashion. She was given appropriate pre-operative antibiotics. A timeout was called, the procedure was verified as Laparoscopic appendectomy, possible open. Surgical, anesthesia and nursing teams agreed and the procedure was begun. After injection of 0.25% Marcaine with epinephrine, a supraumbilical incision was made using a #11 blade scalpel and carried down to the fascia with a hemostat. The abdomen was then elevated with towel clamps and entered using the Veress needle confirming position using the saline drop test. Pneumoperitoneum was established and 5mm trocar was placed. Laparoscope was introduced. No injury was seen from our entrance to the abdomen. At this time a 5mm suprapubic port and 12mm LLQ port were placed under direct visualization. The patient was placed in Trendelenburg and rotated to the left. At this time the appendix was visualized and the tip was freed and elevated toward the abdominal wall. The appendix appeared inflamed, dilated and injected consistent with acute appendicitis. A window was created in the mesoappendix at the base of the appendix. A 45mm gee load stapler was then fired across the base of the appendix which appeared healthy. The mesoappendix was then taken using Harmonic device. The appendix was then placed in an Endocatch bag and removed through the LLQ port site. Staple line was inspected and was intact. Hemostasis was complete. The 12 mm port was then closed at the fascial level using a 0 Vicryl suture using the suture passer. All ports were removed under direct visualization and no bleeding was noted. The abdomen was desufflated and the skin was closed using 4-0 Monocryl in a subcuticular fashion. Sterile dressings were applied. Black catheter was removed. The patient was then awakened from anesthesia having remained stable throughout the entire case and transported to PACU. All needle and sponge counts were correct x 2. I attest to the content of the Intraoperative Record and any orders documented therein. Any exceptions are noted below.
[2025-01-27] MEDS: fentaNYL citrate PF 100 MCG/2 ML VIAL IV PRN (13:55)
[2025-01-27] MEDS ORDERED: MoRPHine SULFATE 4 MG/ML 1 ML CARP\\VIAL IV PRN (14:51)
[2025-01-27] MEDS ORDERED: MoRPHine SULFATE 2 MG/ML CARP IV PRN (14:51)
[2025-01-27] MEDS ORDERED: oxyCODONE HCL IR 5 MG TAB (IMMEDIATE RELEASE) PO PRN ×2 (14:51)
--- NOTE | 2025-01-29 09:37 | Discharge Summary ---
Date of Service January 27, 2025 Admission HPI Per Admitting Provider Patient is an otherwise healthy 19-year-old female who presented to the emergency department for complaints of lower abdominal pain. The patient states the pain started a day prior and the pain has started to radiate into her lower back at times. The patient denies any associated nausea or vomiting with the onset of her pain. She does state that she recently has stopped control and she has had irregular periods since. Her last menstrual cycle ended last week. She has seen a [employer] in the past, however since being in college she hasn't seen one recently. She does believe once prior she had an ovarian cyst however was never confirmed with imaging. The patient states that she has had intermittent abdominal pain for the past month and she was seen at [facility] for the same complaints. She denies chest pain, sob, or fevers/chills. She denies any changes in urinary or bowel habits. Her last BM was a few days ago however states that's normal for her and she goes 3 or so days between having bowel movements. She also complains of constipation at times. The patient was worked up in the emergency department and labs WNL and imaging with 8mm appendix with some slight inflammatory stranding. Due to these findings , the patient was seen and evaluated by general surgery team. The patient is nontoxic appearing, VSS, and resting comfortably. The patient on exam does have some TTP in the RLQ however no rebound or guarding appreciated. The patient denies any previous abdominal surgeries. Principal Diagnosis acute appendicitis Discharge Exam WD/WN, vitals as above Respiratory: normal respiratory effort, lungs clear to auscultation Cardiovascular: RRR, no murmur, no edema Gastrointestinal (Abdomen): Abdomen soft, nondistended, mild TTP in the RLQ without rebound or guarding Skin: no rashes, warm and dry Discharge Data Allergies Allergy/AdvReac Type Severity Reaction Status Date / Time amoxicillin Allergy Intermediate Unverified 01/01/25 15:51 clindamycin Allergy Intermediate Unverified 01/01/25 15:51 Penicillins Allergy Intermediate Unverified 01/01/25 15:51 sulfamethoxazole Allergy Intermediate Unverified 01/01/25 15:51 [From Bactrim] trimethoprim [From Bactrim] Allergy Intermediate Unverified 01/01/25 15:51 Consultations 01/27/25 02:59 ED Decision to Admit Stat Procedures Performed Operation Date: 01/27/25 11:00 Actual Procedures p Laparoscopic Appendectomy(Not Applicable) - Mayank Clifton DO Ordered Studies 01/26/25 21:03 CT abd pelvis wo con Stat 01/27/25 01:04 US pelvic complete Stat 01/27/25 01:32 US transvaginal Stat Hospital Course (1) Appendicitis: This is a 19 yo F who presented to the [facility] ED on 01/26/25 with abdominal pain. Workup in the ED showed a CT a/p concerning for acute appendicitis (see HPI for full details). Patient made NPO with IVF and booked for the OR. On 01/27/25 the patient went to the OR with Dr Clifton for a Laparoscopic Appendectomy. The patient tolerated the procedure well, see operative report for full details. Post operatively the patient's diet was advanced, pain managed on prn meds, and incisions clean/dry/intact. Post procedure the patient was deemed stable for discharge to home. The patient was given discharge instructions, follow up recommendations, return precautions. Total Time Total Time Spent Total Time Spent (In Minutes): 10 Discharge Plan Discharge Items Patient Disposition: Home - Self-Care Reason For Visit: ABDOMINAL PAIN Discharge Diagnosis: Acute appendicitis Condition on Discharge: Good Activity: As commented below Activity Comment: No lifting, pushing or pulling more than 10 pounds for the next 2 weeks Lifting: No more than 10 pounds Bathing Comment: Can shower tomorrow, no submerging the incisions in water for 7 to 10 days Exercise/Sports: Wait until after follow-up appointment Non-emergency contact: Surgeon Call non-emergency contact if: your temperature is above 101 and your wound has increased redness Follow-up/Referrals: Mayank Clifton DO [Physician] - PCP,NO [Primary Care Provider] - Diet: Regular Addtl Attending Provider Instructions: Please call [phone] tomorrow to set up a postop appointment, this can be a telephone appointment if desired. Take Tylenol and/or ibuprofen for pain control as needed. Pending Studies at Discharge: No Stand-Alone Forms: [employer], Work/School Release, Smoking [employer] sation Medications and DC Order Prescriptions: Continued montelukast [Singulair] 10 mg tablet 10 mg PO DAILY cetirizine [Zyrtec] 10 mg tablet 10 mg PO DAILY PRN (Reason: Allergy Symptoms) fluticasone propionate [Flonase Allergy Relief] 50 mcg/actuation spray,chanda pension 1 spray intranasal DAILY Rx Instructions: administer into each nostril Discharge Orders: Discharge Order (Routine); Ordered 01/27/25 Ordered By: Mayank Grimm/Other Patient Handouts: DVT Post Op Prevention Admission Data Admit Date/Time: 01/27/25 02:54 Attending Provider: Mayank Clifton Admit Provider: Mayank Clifton Primary Care Provider: PCP,NO Other Providers: Gene Rogers Other Interventions: Discharge Summary Assessment (RN) Last Done: 01/27/25 17:27 Coding Level of Care Code 89990 IN/OBS DISCH 30 MIN/LESS Diagnoses Appendicitis K37
== END 2025-01-27 18:37 | disposition home or self-care (01) ==
LOC: ED 20:44 → 3N 20:44